=== PATIENT | female | born 1985 | race Two or more races ===

== ENCOUNTER 2024-06-04 10:00 | Emergency (ER) | payer MEDICAID, SELFPAY ==
[2024-06-04 10:38] VITALS: BP 169/89; PULSE 62; RESP 16; TEMP 36.6; O2SAT 98; BMI 39.1
--- NOTE | 2024-06-04 11:01 | XR_ITS ---
Examination: Pelvic ultrasound, transabdominal, complete Technique: Transabdominal ultrasound of the pelvis performed using grayscale imaging Date and time of exam: June 04, 2024 1121 hrs. Indications: Onset right-sided pelvic pain today Findings: Uterus 9.3 x 6.2 x 5.3 cm anteverted No uterine mass or intrauterine gestation Endometrial stripe 10 mm Right ovary 3.0 x 4.4 cm arterial flow Left ovary 2.9 x 3.0 cm arterial flow Impression: Negative examination
--- NOTE | 2024-06-04 11:04 | PD.EDRME ---
Rapid Medical Screening Exam RME Arrival date/time: 06/04/24 10:00 38-year-old female presents to the emergency department complaints of pelvic pain status post starting her menses. History of fibroids. Reports [id number] medication not being effective at home. Requesting pain medication. I have greeted and performed a focused initial assessment of this patient. Initial appropriate labs ordered at this time. A comprehensive ED assessment and evaluation of the patient and analysis of all test and completion of medical decision making process will be conducted by additional ED provider. Chief Complaint: Urogenital-Female Time Seen by Provider: 06/04/24 10:37 Vital signs: Vital Signs Temperature 97.9 F 06/04/24 10:38 Pulse Rate 62 06/04/24 10:38 Respiratory Rate 16 06/04/24 10:38 Blood Pressure 169/89 H 06/04/24 10:38 Pulse Oximetry (%) 98 06/04/24 10:38 Oxygen Delivery Method Room Air 06/04/24 10:38
--- NOTE | 2024-06-04 11:05 | PC.NURSE ---
MEDICATED PT PAIN AND WHEN TOLD TO RETURN TO THE LOBBY WHILE WAITING FOR A ROOM TO BE AVAILABLE (INFORMED THAT SHE IS IN ONE OF THE TRIAGE ROOMS AT PRESENT), PT STARTED YELLING SAYING I'M NOT GOING TO THE LOBBY. EVERYONE IS STARING AT ME WHILE I'M CRYING. AGAIN INFORMED PT SHE WAS IN A TRIAGE ROOM, NOT A PATIENT ROOM AND ROOM NEEDED FOR NEXT PT THAT NEEDS TO SEE PROVIDER, AND ALSO INFORMED THAT NURSE WILL TALK WITH CHARGE NURSE ABOUT HER CONCERNS, PTCONTINUES TO YELL I'M NOT WAITING IN THE LOBBY.
[2024-06-04] MEDS: HYDROcodone/APAP 5/325 TABLET 1 TAB PO (11:07)
--- NOTE | 2024-06-04 11:14 | PC.NURSE ---
ACOUSTICS TEACHER WENT TO GIVE PT WATER TO DRINK FOR CT AND PT STARTED YELLING AT THE ACOUSTICS TEACHER YOU CAN'T MAKE ME DRINKWATER OR GIVE A URINE, I'M HURTING AND WANT A ROOM. INFORMED PTTHAT URINE IS NEEDED TO MAKE SURE PAIN NOT FROM A URINE INFECTION, AND WATER NEEDED TO GET ULTRASOUND DONE. STILL REFUSING BUT DID GO TO LOBBY. ULTRASOUND CALLED THAT PT REFUSING TO DRINK WATER
[2024-06-04 13:34] LABS: Collection Type, Urine Clean Catch
[2024-06-04 13:50] LABS: Bacteria,Urine Rare; Bilirubin,Urine Negative (Negative); Blood,Urine 3+ (Negative); Color,Urine Yellow (Lt Yel-Yel); Glucose, Urine Negative (Negative); Ketones,Urine Negative (Negative); Leukocyte Esterase,Urine Positive (Negative); Nitrite,Urine Negative (Negative); Protein,Urine 1+ (Neg - Trace); RBC,Urine 546 /hpf (0-3); Squamous Epithelial Cell,Urine 2 /hpf (0-5); Urobilinogen,Urine Negative mg/dL (0.0-1.0); WBC,Urine 3 /hpf (0-5)
[2024-06-04 13:51] LABS: Clarity,Urine Hazy (Clear/Hazy)
[2024-06-04 14:54] LABS: HCG Qualitative,Urine Negative
[2024-06-04] MEDS: ONDANSETRON ODT 4 MG TABRAP 8 MG PO (14:55)
[2024-06-04] MEDS: MORPHINE SULF INJ 10 MG/ML VIAL 5 MG IM (14:55)
--- NOTE | 2024-06-07 11:45 | EDNOTE_ITS ---
ED Female Urogenital RME/HPI General Chief complaint: Urogenital-Female Stated complaint: b/l ovarian pain. more on right since last night Time Seen by Provider: 06/04/24 10:37 Arrival date/time: 06/04/24 10:00 This is a 38-year-old female who presents to the emergency department with complaints of lower pelvic pain that began after starting her menses. According to the patient she normally has pelvic pain which can be severe with her menses. Reports has been taking aufd-fde-xjaznhe Tylenol and ibuprofen with no relief prompting her ED visit today. Patient denies any fever, nausea no vomiting. No vaginal vaginal discharge foul odors. Limitations: no limitations RME / HPI RME / HPI Narrative: 06/04/24 10:00 38-year-old female presents to the emergency department complaints of pelvic pain status post starting her menses. History of fibroids. Reports [id number] medication not being effective at home. Requesting pain medication. I have greeted and performed a focused initial assessment of this patient. Initial appropriate labs ordered at this time. A comprehensive ED assessment and evaluation of the patient and analysis of all test and completion of medical decision making process will be conducted by additional ED provider. Related Data Previous Rx's ?Medication ?Instructions ?Recorded alprazolam 0.5 mg tablet (Xanax) 0.5 mg PO BID PRN anxiety #20 tabs 09/17/23 Allergies Allergy/AdvReac Type Severity Reaction Status Date / Time ibuprofen Allergy Intermediate RASH Verified 04/09/24 00:02 Review of Systems Review of Systems Systems Reviewed: All systems reviewed, normal except as documented Narrative Review of Systems: Gen: No fever, no chills, no weight loss EYES: No discharge, no visual changes, no pain HEENT: No ear pain, no congestion, no sore throat PULM: No shortness of breath, no cough, no congestion CV: No chest pain, no dyspnea on exertion, no palpitations GI: No nausea, no vomiting, no diarrhea, no pain, no constipation : No frequency, no urgency,? no dysuria, + pelvic pain Musc/skel: No joint pain, no back pain Skin: No rash? Psyc: No hallucinations, no depression Heme/Lymph: No easy bleeding or bruising tendencies Neuro: No weakness, no headache ED Exam General Limitations: Present no limitations General appearance: Present alert and in distress (Due to pain.) Expanded Head Exam Head exam physical: Present laceration (3 cm L eyebrow) Eye Eye exam: Present normal appearance, PERRL and EOMI ENT ENT exam: Present normal exam, normal oropharynx and mucous membranes moist Neck Neck exam: Present normal inspection, full ROM and trachea midline Chest Chest inspection: Present normal inspection and symmetric chest wall rise Respiratory Respiratory exam: Present normal lung sounds bilaterally Cardiovascular Cardiovascular exam: Present regular rate, normal rhythm and normal heart sounds Abdominal Exam Abdominal exam: Present soft, tenderness, normal bowel sounds and hyperactive bowel sounds; Absent distention, guarding, rebound, rigidity or mass Abdominal tenderness: Present suprapubic and mild Extremities Exam Extremities exam: Present normal inspection and full ROM Back Exam Back exam: Present normal inspection and full ROM Neurological Exam Neurological exam: Present alert, oriented X3 and CN II-XII intact Psychiatric Psychiatric exam: Present normal affect and normal mood Skin Skin exam: Present warm, dry, intact and normal color Course Quality Measures none Orders Category Date Time Status US pelvic complete Stat Exams 06/04/24 11:01 Completed HCG Qualitative,Urine Stat Lab 06/04/24 12:51 Completed UA [Urinalysis] Stat Lab 06/04/24 12:57 Completed HYDROcodone*/APAP 5/325 [[place] 5/325] Med 06/04/24 11:01 Discontinued 1 tab PO X1 ONE Morphine Inj Med 06/04/24 14:42 Discontinued 5 mg IM X1 ONE Ondansetron Odt [Zofran Odt] Med 06/04/24 14:42 Discontinued 8 mg PO X1 ONE Vital Signs Vital signs: Vital Signs Temperature 97.9 F 06/04/24 10:38 Pulse Rate 62 06/04/24 10:38 Respiratory Rate 16 06/04/24 10:38 Blood Pressure 169/89 H 06/04/24 10:38 Pulse Oximetry (%) 98 06/04/24 10:38 Oxygen Delivery Method Room Air 06/04/24 10:38 Urogenital - Female MDM Narrative MDM Narrative:: This is a 38-year-old female who presents to the emergency department with complaints of lower pelvic pain that began after starting her menses. According to the patient she normally has pelvic pain which can be severe with her menses. Labs and imaging reassuring. Pelvic ultrasound was completely normal. Patient was provided analgesia medications improving her pain. Patient does report have a follow-up appointment with her CLINICAL LABORATORY MEDICAL DIRECTOR this upcoming week in which she will keep her appointment for follow-up. No indications clinically for further workup or admission. Patient will be discharged home stable. Patient data External records reviewed:: [facility] previous records Clinical information provided by:: patient Social determinants that could affect healthcare access:: none Patient has the following chronic illnesses:: None How is presenting disease/condition affected by chronic disease/condition?: no chronic disease Evaluation data The following diagnostics were reviewed and interpreted by me:: lab results and radiology exam(s) Lab and/or radiology exams considered but not ordered:: no Interpretation Summary: Examination: Pelvic ultrasound, transabdominal, complete Technique: Transabdominal ultrasound of the pelvis performed using grayscale imaging Date and time of exam: June 04, 2024 1121 hrs. Indications: Onset right-sided pelvic pain today Findings: Uterus 9.3 x 6.2 x 5.3 cm anteverted No uterine mass or intrauterine gestation Endometrial stripe 10 mm Right ovary 3.0 x 4.4 cm arterial flow Left ovary 2.9 x 3.0 cm arterial flow Impression: Negative examination Medications / Prescriptions Medications or Prescriptions considered but not ordered:: no Medication administrations:: Medication Administration History Discontinued Medications Hydrocodone Bitart/Acetaminophen (Hydrocodone/Apap 5/325 Tablet) 1 tab PO X1 ONE Stop: 06/04/24 11:02 Last Admin: 06/04/24 11:07 Dose: 1 tab Documented By: [facility] Morphine Sulfate (Morphine Sulf Inj 10 Mg/Ml Vial) 5 mg IM X1 ONE Stop: 06/04/24 14:43 Last Admin: 06/04/24 14:55 Dose: 5 mg Documented By: Ondansetron HCl (Ondansetron Odt 4 Mg Tabrap) 8 mg PO X1 ONE; Protocol Stop: 06/04/24 14:43 Last Admin: 06/04/24 14:55 Dose: 8 mg Documented By: All medications administered and effective Consultations Consultation(s) initiated? (list below): No Diagnosis Urogenital Female Differential Diagnosis: urinary tract infection, vaginitis, ruptured ovarian cyst, cystitis and dysmenorrhea Most likely diagnosis given after review of the tests above:: Dysmenorrhea Admission Indicated Admission indicated?: not indicated Admission Request Was there a request for admission?: No Disposition Plan Disposition Plan: Discharge Discharge Attestation Discharge Attestation: The patient and all family members were given an opportunity to ask questions and understood the discharge instructions. Discharge instructions specifically effects, indications for sooner follow up or return to the emergency department, and the expected course of current diagnosis. Patient condition: Stable Discharge Plan Plan Patient Disposition: HOME (Self Care) Patient condition on transfer: Stable Prescriptions/Referrals Prescriptions/Med Rec: No Action alprazolam [Xanax] 0.5 mg tablet 0.5 mg PO BID PRN (Reason: anxiety) Qty: 20 0RF Referrals: Lyndon Choi MD [Primary Care Provider] - In 1 week Problem List Clinical Impression: Dysmenorrhea Patient/Caregiver Discharge Instructions Discharge Activity: activity as tolerated Education Materials: ED MENSTRUAL CRAMPING Additional Instructions: Please follow-up with your PROCESS VALIDATION ENGINEER this week. Take pain medication as directed. Return to the emergency department is any worsening symptoms change in condition. Print Language: Cymro Stand Alone Forms: Zena Award Info., Patient Portal Info Letter Attestation Attestation The patient was seen by the midlevel practitioner. I, the co-signing physician, was present during the entire ER visit. While I did not physically examine the patient, I was available for consultation as needed.
== END 2024-06-04 15:36 | disposition home or self-care (01) ==
PROVIDERS: Nurse Practitioner Primary Care; Emergency Provider Emergency Medicine; PCP Family Medicine
DX: N94.6 Dysmenorrhea, unspecified (principal)
CPT/HCPCS: 76856; 81001; 81025; 96372; 99284; J2270; Q0162; A9270

== ENCOUNTER 2024-07-06 11:50 | Emergency (ER) | payer MEDICAID, SELFPAY ==
[2024-07-06 11:54] VITALS: BP 99/79; PULSE 65; RESP 17; TEMP 36.8; O2SAT 99; BMI 38.9
--- NOTE | 2024-07-06 12:27 | XR_ITS ---
Examination: Transvaginal ultrasound of the pelvis, complete Technique: Transvaginal sonographic images pelvis performed using delarosa scale imaging Exam date and time: July 06, 2000 2413-hours INDICATIONS: Severe pelvic pain beginning 2 days ago FINDINGS: Uterus 7.7 x 5.9 x 5.6 cm Multiple small uterine masses, the largest 13 mm No free fluid in the endometrial canal. The ovaries obscured by bowel gas IMPRESSION: Multiple small areas of uterine fibroid degeneration.
--- NOTE | 2024-07-06 12:27 | XR_ITS ---
Examination: Pelvic ultrasound, transabdominal, complete Technique: Transabdominal ultrasound of the pelvis performed using grayscale imaging Date and time of exam: July 06, 2024 1301 hours INDICATIONS: Severe pelvic pain beginning 2 days ago FINDINGS: Uterus 6.7 x 4.5 x 5.6 cm Endometrial stripe 0.7 cm Right ovary 3.4 x 2.2 x 3.1 cm arterial flow 13 mm follicular cyst Left ovary 2.7 x 2.1 x 2.2 cm arterial flow IMPRESSION: No uterine mass or intrauterine gestation
[2024-07-06] MEDS: MORPHINE SULF INJ 10 MG/ML VIAL 5 MG IM (13:50)
[2024-07-06] MEDS: ONDANSETRON INJ 2 MG/ML INJ 2 ML 4 MG IM (13:52)
[2024-07-06 15:56] VITALS: BP 162/94; PULSE 103; RESP 17; TEMP 36.8; O2SAT 100
--- NOTE | 2024-07-06 16:04 | PD.EDFMALE ---
ED Female Urogenital RME/HPI General Chief complaint: Urogenital-Female Stated complaint: pelvic pain x 2 days Time Seen by Provider: 07/06/24 12:14 Source: patient Arrival date/time: 07/06/24 11:50 This is a 38-year-old female who presents to the emergency department with complaints of lower pelvic pain worsened over for 2 days. Was sent to by her pcp for repeat U/S pelvic due to hx of ovarian cyst and uterine fibroids. Patient reports she was unable to get these test done sooner, so her PCP sent her here for repeat and for pain control. According to the patient she has these recurrent pelvic pain since 2020. According to the patient she normally has pelvic pain which can be severe with her menses. Reports has been taking stmh-brr-vytropl Tylenol and ibuprofen with no relief prompting her ED visit today. She has been referred to [facility] has an appointment in [place]. Patient requesting narcotic pain control today. Patient denies any fever, nausea no vomiting no diarrhea, melena not on her menses today.. No vaginal vaginal discharge foul odors. Mode of arrival: ambulatory Related Data Previous Rx's ?Medication ?Instructions ?Recorded alprazolam 0.5 mg tablet (Xanax) 0.5 mg PO BID PRN anxiety #20 tabs 09/17/23 hydrocodone 5 mg-acetaminophen 325 1 tab PO Q8H PRN pain #7 tabs 07/06/24 mg tablet Allergies Allergy/AdvReac Type Severity Reaction Status Date / Time ibuprofen Allergy Intermediate RASH Verified 07/06/24 11:53 Review of Systems Review of Systems Systems Reviewed: All systems reviewed, normal except as documented Narrative Review of Systems: Gen: No fever, no chills, no weight loss EYES: No discharge, no visual changes, no pain HEENT: No ear pain, no congestion, no sore throat PULM: No shortness of breath, no cough, no congestion CV: No chest pain, no dyspnea on exertion, no palpitations GI: No nausea, no vomiting, no diarrhea, no pain, no constipation : No frequency, no urgency,? no dysuria, +chronic pelvic pain. Musc/skel: No joint pain, no back pain Skin: No rash? ED Exam Narrative Physical exam: General: 38-year-old female appears mildly anxious crying during exam HENT: normocephalic, atraumatic, EOMI, PERRLA, moist mucous membranes Chest: chest wall is nontender Cardiac: regular rate and rhythm, normal S1 and S2, no murmurs, rubs, or gallops, capillary refill ?2 seconds Pulmonary: clear to auscultation bilaterally, no wheezing, crackles, or rhonchi Abdominal: active bowel sounds, soft, nontender, nondistended, + mild suprapubic pain tenderness no rebound tenderness. Neuro: A&OX3, CN II-XII intact, sensation grossly intact bilaterally in UE and LE. Skin: no rashes, no ecchymosis Ext: no lower extremity edema Course Quality Measures none Orders Category Date Time Status US pelvic complete Stat Exams 07/06/24 12: Completed US transvaginal Stat Exams 07/06/24 12:27 Completed HYDROcodone*/APAP 5/325 [[place] 5/325] Med 07/06/24 16:21 Discontinued 1 tab PO X1 ONE Morphine Inj Med 07/06/24 12:29 Discontinued 5 mg IM X1 ONE Ondansetron Inj [Zofran Inj] Med 07/06/24 12:29 Discontinued 4 mg IM X1 ONE Vital Signs Vital signs: Vital Signs Temperature 98.3 F 07/06/24 11:54 Pulse Rate 65 07/06/24 11:54 Respiratory Rate 17 07/06/24 11:54 Blood Pressure 99/79 07/06/24 11:54 Pulse Oximetry (%) 99 07/06/24 11:54 Oxygen Delivery Method Room Air 07/06/24 11:54 Urogenital - Female MDM Narrative MDM Narrative:: This is a 38-year-old female who presents to the emergency department with complaints of lower pelvic pain worsened over for 2 days. Was sent to by her pcp for repeat U/S pelvic due to hx of ovarian cyst and uterine fibroids. Patient reports she was unable to get these test done sooner, so her PCP sent her here for repeat and for pain control. Upon arrival patient requesting IM morphine. Which was given to her for pain control. Ultrasound pelvic and transvaginal ordered. Imaging results were reassuring. Imaging results of uterine fibroid and a small follicular cyst. I went over the results with the patient patient became mildly belligerent requesting more pain medication. I did offer her a p.o. [place] which she still was hesitant. Advised the patient most likely her pain is a chronic pain. I strongly advised patient to keep her appointment with her WAITSTAFF CAPTAIN in [place], to rule out endometriosis. Patient requesting narcotic prescription for home I did advise patient I will give her a 7-tabs until she is able to see her PCP for pain control or be sent to a pain clinic. Patient vital signs stable no acute alteration in condition. I have explained at length that I would be ready to address the complaint appropriately. I have stressed the importance to safe care and did not disregard or dismiss the complaints, but explained that I was quite concerned about the narcotics dependent, misuse and/or potential abuse. I explained that I provided a stabilizing exam and will pursue the least invasive course. Prior to discharge patient on the phone calling to make an appointment with her PCP for narcotic prescription. Appears to be malingering behavior. Patient will be discharged home close follow-up with PCP. Patient data External records reviewed:: [facility] previous records Clinical information provided by:: patient Social determinants that could affect healthcare access:: none Patient has the following chronic illnesses:: Chronic pelvic pain How is presenting disease/condition affected by chronic disease/condition?: exacerbated by Evaluation data The following diagnostics were reviewed and interpreted by me:: radiology exam(s) Lab and/or radiology exams considered but not ordered:: yes considered Interpretation Summary: Examination: Pelvic ultrasound, transabdominal, complete Technique: Transabdominal ultrasound of the pelvis performed using grayscale imaging Date and time of exam: July 06, 2024 1301 hours INDICATIONS: Severe pelvic pain beginning 2 days ago FINDINGS: Uterus 6.7 x 4.5 x 5.6 cm Endometrial stripe 0.7 cm Right ovary 3.4 x 2.2 x 3.1 cm arterial flow 13 mm follicular cyst Left ovary 2.7 x 2.1 x 2.2 cm arterial flow IMPRESSION: No uterine mass or intrauterine gestation Examination: Transvaginal ultrasound of the pelvis, complete Technique: Transvaginal sonographic images pelvis performed using delarosa scale imaging Exam date and time: July 06, 2000 2413-hours INDICATIONS: Severe pelvic pain beginning 2 days ago FINDINGS: Uterus 7.7 x 5.9 x 5.6 cm Multiple small uterine masses, the largest 13 mm No free fluid in the endometrial canal. The ovaries obscured by bowel gas IMPRESSION: Multiple small areas of uterine fibroid degeneration. Medications / Prescriptions Medications or Prescriptions considered but not ordered:: yes, short course of narcotic prescription Medication administrations:: Medication Administration History Discontinued Medications Hydrocodone Bitart/Acetaminophen (Hydrocodone/Apap 5/325 Tablet) 1 tab PO X1 ONE Stop: 07/06/24 16:22 Last Admin: 07/06/24 16:24 Dose: 1 tab Documented By: OA Morphine Sulfate (Morphine Sulf Inj 10 Mg/Ml Vial) 5 mg IM X1 ONE Stop: 07/06/24 12:30 Last Admin: 07/06/24 13:50 Dose: 5 mg Documented By: OA Ondansetron HCl (Ondansetron Inj 2 Mg/Ml Inj 2 Ml) 4 mg IM X1 ONE; Protocol Stop: 07/06/24 12:30 Last Admin: 07/06/24 13:52 Dose: 4 mg Documented By: OA All medications administered and effective Consultations Consultation(s) initiated? (list below): No Diagnosis Urogenital Female Differential Diagnosis: ovarian cyst, ruptured ovarian cyst, cyst of Bartholin's gland, cystitis and dysmenorrhea Most likely diagnosis given after review of the tests above:: During fibroid and ovarian cyst chronic pelvic pain Admission Indicated Admission indicated?: not indicated Admission Request Was there a request for admission?: No Disposition Plan Disposition Plan: Discharge Discharge Attestation Discharge Attestation: The patient and all family members were given an opportunity to ask questions and understood the discharge instructions. Discharge instructions specifically effects, indications for sooner follow up or return to the emergency department, and the expected course of current diagnosis. Patient condition: Stable Discharge Plan Plan Patient Disposition: HOME (Self Care) Patient condition on transfer: Stable Prescriptions/Referrals Prescriptions/Med Rec: New hydrocodone-acetaminophen 5-325 mg tablet 1 tab PO Q8H MDD 3 PRN (Reason: pain) Qty: 7 0RF No Action alprazolam [Xanax] 0.5 mg tablet 0.5 mg PO BID PRN (Reason: anxiety) Qty: 20 0RF Referrals: No Primary/Family,Physician [Primary Care Provider] - In 1 week Problem List Clinical Impression: Ovarian cyst, Fibroid uterus, Dysmenorrhea Patient/Caregiver Discharge Instructions Discharge Activity: activity as tolerated Education Materials: ED Ovarian Cyst, ED Uterine Fibroids Additional Instructions: Please keep your appointment with WAITSTAFF CAPTAIN. You did just receive narcotic today for your pain. You will need to follow-up with your primary doctor for pain control or be sent to a chronic pain clinic. Increase fluid intake, can take [id number] Tylenol ibuProfen for your pain. reTurn to the emergency department this any worsening symptoms or change in condition. Print Language: Haitian Stand Alone Forms: Zena Award Info., Patient Portal Info Letter PA/TAYLOR Supervising Physician PA/TAYLOR Supervising Physician: Dr. Block
[2024-07-06 16:11] VITALS: BP 144/81; PULSE 62; RESP 18; TEMP 36.6; O2SAT 97
[2024-07-06] MEDS: HYDROcodone/APAP 5/325 TABLET 1 TAB PO (16:24)
== END 2024-07-06 16:53 | disposition home or self-care (01) ==
PROVIDERS: Emergency Provider Emergency Medicine
DX: D25.9 Leiomyoma of uterus, unspecified (principal); N83.02 Follicular cyst of left ovary
CPT/HCPCS: 76830; 76856; 96372; 99284; J2270; J2405; A9270

== ENCOUNTER → 2024-11-13 | Outpatient (CLI) | payer MEDICAID, SELFPAY ==
--- NOTE | 2024-11-13 | XR_ITS ---
Examination: CT abdomen with intravenous contrast CT pelvis with intravenous contrast 2-D coronal reconstructions 2-D sagittal reconstructions Date and time of exam:November 13, 2024 1336 hours Comparison January 30, 2015 INDICATIONS: Onset right lower abdominal pain beginning 5 years ago. CTDI: vol (mGy) 11.4 DLP: (mGycm) 639 Technique: Multiple axial sections of the abdomen and pelvis have been obtained. 64 slice high-resolution scanner used. 3 mm axial sections have been obtained, post intravenous injection 60 cc [id number] 2-D sagittal, coronal reconstructions obtained. Low dose protocols were performed. One or more of the following dose reduction techniques were used; automated exposure control, adjustment of the mA and/or KV according to patient size, use of iterative reconstruction technique. Findings: No focal liver or splenic lesion No gallstones No pancreatic or adrenal mass No renal or ureteral calculi Normal appendix 4 cm uterine fundal mass Bladder intact No diverticulitis IMPRESSION: 4 cm uterine fundal mass, recommend repeat transvaginal pelvic sonography follow-up
[2024-11-13 11:53] LABS: HCG Qualitative,Urine Negative
== END | disposition home or self-care (01) ==
PROVIDERS: Referring Provider Obstetrics & Gynecology; Visit Provider Obstetrics & Gynecology
DX: N85.8 Other specified noninflammatory disorders of uterus (principal); Z32.00 Encounter for pregnancy test, result unknown
CPT/HCPCS: 74177; 81025; A4649; Q9967

== ENCOUNTER 2025-05-08 08:38 | Emergency (ER) | payer MEDICAID, SELFPAY ==
[2025-05-08 08:39] VITALS: BMI 33.8
[2025-05-08 08:46] VITALS: BP 170/84; PULSE 59; RESP 16; TEMP 36.7; O2SAT 98
--- NOTE | 2025-05-08 08:55 | XR_ITS ---
Examination: Transvaginal ultrasound of the pelvis, complete Technique: Transvaginal sonographic images pelvis performed using delarosa scale imaging Exam date and time: May 08, 2025, 1008 hours INDICATIONS: 4 cm uterine fundal mass on CT pelvis November 13, 2024. FINDINGS: Uterus 8.8 cm, uterine fundal vascular mass 4.9 x 3.6 x 4.1 cm Endometrial stripe 0.4 cm Right ovary 3.3 cm arterial flow Left ovary 3.2 cm arterial flow, 21 mm cyst IMPRESSION: Uterine fundal vascular mass 4.9 x 3.6 x 4.1 cm, recommend MRI pelvis follow-up pre and postcontrast to exclude malignant neoplasm of the uterus.
--- NOTE | 2025-05-08 08:55 | EKG_ITS ---
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
--- NOTE | 2025-05-08 08:56 | PD.EDRME ---
Rapid Medical Screening Exam [facility] Arrival date/time: 05/08/25 08:38 39-year-old female with no known medical history presents to the emergency room with a chief complaint of pelvic pain and vaginal bleeding x 4 days. Patient states she also had a syncopal episode that occurred today at home. I have greeted and performed a focused initial assessment of this patient. A comprehensive ED assessment and evaluation of the patient, analysis of all test results, and completion of the medical decision making process will be conducted by additional ED providers. Chief Complaint: Syncope / Near Syncope Vital signs: Vital Signs Temperature 98.1 F 05/08/25 08:46 Pulse Rate 59 L 05/08/25 08:46 Respiratory Rate 16 05/08/25 08:46 Blood Pressure 170/84 H 05/08/25 08:46 Pulse Oximetry (%) 98 05/08/25 08:46 Oxygen Delivery Method Room Air 05/08/25 08:46 Vital signs reviewed by provider: Yes
[2025-05-08] MEDS: ONDANSETRON ODT 4 MG TABRAP PO (09:01)
[2025-05-08] MEDS: HYDROcodone/APAP 5/325 TABLET 1 TAB PO ×2 (09:01→12:58)
--- NOTE | 2025-05-08 09:03 | XR_ITS ---
Examination: CT abdomen and pelvis without contrast. Coronal 3-D reconstructions. Sagittal 2-D reconstructions. Date and time of exam: May 08, 2025, 10:44 a.m., comparison November 13, 2024 INDICATIONS: Right side abdominal pain today CTDI: vol (mGy): 9.03 DLP: (mGycm): 558 Technique: Axial images of the abdomen have been obtained, 3 mm slice thickness Intravenous contrast material has not been administered. Low dose protocols were performed. One or more of the following dose reduction techniques were used; automated exposure control, adjustment of the mA and/or KV according to patient size, use of iterative reconstruction technique. Findings: No focal liver or splenic lesions No gallstones. No pancreatic or adrenal mass. No renal or ureteral calculi, no hydronephrosis Aorta normal size No pericecal inflammatory change No bowel obstruction Scattered colonic diverticulosis 4 cm uterine fundal mass Bladder intact Osseous structures intact IMPRESSION: 4 cm uterine fundal mass No acute process in the abdomen or pelvis
[2025-05-08 09:32] LABS: Basophils # (Auto) 0.1 Thou/mm3 (0.0-0.2); Basophils % (Auto) 1 % (0-2.5); Eosinophils # (Auto) 0.1 Thou/mm3 (0.0-0.5); Eosinophils % (Auto) 1 % (0-10); Hematocrit 39.8 % (36.0-46.0); Hemoglobin 13.0 g/dL (12.0-16.0); Immature Granulocytes Auto 0.04 Thou/mm3 (0.00-0.00); Lymphocytes # (Auto) 2.1 Thou/mm3 (1.0-4.8); Lymphocytes % (Auto) 18 % (10-50); Mean Corpuscular HGB Conc 32.7 g/dl (31.0-37.0); Mean Corpuscular Hemoglobin 28.6 pg (25.0-35.0); Mean Corpuscular Volume 88 fL (80-100); Monocytes # (Auto) 0.5 Thou/mm3 (0.0-0.8); Monocytes % (Auto) 4 % (0-12); Neutrophils # (Auto) 8.6 Thou/mm3 (1.8-7.7); Neutrophils % (Auto) 76 % (37-80); Nucleated Red Blood Cell # 0.00 Thou/mm3 (0.00-0.00); Nucleated Red Blood Cell % 0 /100 WBC (0); Platelet Count 455 Thou/mm3 (140-440); RDW Standard Deviation 44.7 fL (36.4-46.3); Red Blood Count 4.55 Miln/mm3 (4.00-5.20); White Blood Count 11.3 Thou/mm3 (3.6-11.0)
[2025-05-08 09:39] LABS: INR 1.0 (0.9-1.3); Partial Thromboplastin Time 29.3 Seconds (22.0-36.0); Prothrombin Time 10.4 Seconds (9.0-12.2)
[2025-05-08 09:44] LABS: Collection Type, Urine Clean Catch
[2025-05-08 09:49] LABS: Bacteria,Urine Rare; Bilirubin,Urine Negative (Negative); Blood,Urine 3+ (Negative); Glucose, Urine Negative (Negative); Ketones,Urine Negative (Negative); Leukocyte Esterase,Urine Negative (Negative); Nitrite,Urine Negative (Negative); PH,Urine 5.5 (5.0-7.0); Protein,Urine 1+ (Neg - Trace); RBC,Urine 5 /hpf (0-3); Specific Gravity,Urine 1.024 (1.001-1.035); Squamous Epithelial Cell,Urine 6 /hpf (0-5); Urobilinogen,Urine Negative mg/dL (0.0-1.0); WBC,Urine 2 /hpf (0-5)
[2025-05-08 09:50] LABS: B-Type Natriuretic Peptide 66 pg/mL (0-100)
[2025-05-08 09:52] LABS: HCG Qualitative,Urine Negative
[2025-05-08 09:53] LABS: Clarity,Urine Cloudy (Clear/Hazy); Color,Urine Red (Lt Yel-Yel)
[2025-05-08 10:01] LABS: Alanine Aminotransferase 8 U/L (10-49); Albumin, Serum 4.7 gm/dL (3.5-5.0); Albumin/Globulin Ratio 1.7 (1.2-2.2); Alkaline Phosphatase 46 U/L (46-116); Anion Gap 8 (7-16); Aspartate Amino Transferase 13 U/L (0-34); BUN/Creatinine Ratio 11 Ratio (12-20); Bilirubin,Total 0.6 mg/dL (0.3-1.2); Blood Urea Nitrogen 8 mg/dL (9-23); Calcium 8.8 mg/dL (8.3-10.6); Calcium (Corrected) 8.8 mg/dL (8.5-10.1); Carbon Dioxide 25.7 mMol/L (20.0-31.0); Chloride 107 mMol/L (98-107); Creatinine (Component) 0.7 mg/dL (0.6-1.3); Estimated Creatinine Clearance 102.1 mL/min (>60); Globulin 2.7 gm/dL (2.3-3.5); Glucose 106 mg/dL (74-106); Lipase 27 U/L (12-53); Osmolality,Calculated 279 (275-295); Potassium 4.4 mMol/L (3.4-5.1); Sodium 141 mMol/L (136-145); Total Protein 7.4 gm/dL (5.7-8.2); Troponin I < 0.002 ng/mL (0.0-0.045); eGFR > 60 See Note
--- NOTE | 2025-05-08 12:44 | PC.NURSE ---
Dr. De La Torre aware patient requesting more pain medication, states no relief from norco earlier.
--- NOTE | 2025-05-08 13:30 | EDNOTE_ITS ---
ED Abdominal Pain RME/HPI General Chief Complaint: Syncope / Near Syncope Stated complaint: STARTED MY PERIOD, DOES NOT FEEL NORMAL Arrival date/time: 05/08/25 08:38 RME / HPI RME / HPI narrative: 05/08/25 08:38 39-year-old female with no known medical history presents to the emergency room with a chief complaint of pelvic pain and vaginal bleeding x 4 days. Patient states she also had a syncopal episode that occurred today at home. I have greeted and performed a focused initial assessment of this patient. A comprehensive ED assessment and evaluation of the patient, analysis of all test results, and completion of the medical decision making process will be conducted by additional ED providers. DR. HAMMOND MAIN ED EVALUATION 39 year old female with history of ovarian cysts and painful menses presents to the ED for evaluation of severe pelvic abdominal cramping pain today. Patient states she has had painful menses and usually able to manage pain at home. However, since starting her menses 2 days ago, she has been unable to manage pain with Tylenol. States this morning while using the restroom the pain was so severe she possibly momentarily lost consciousness while in the restroom. Denies head injury. No other associated symptoms reported. Patient mentioned a referral has been sent to see OBGYN Dr. Barnes. Related Data Previous Rx's ?Medication ?Instructions ?Recorded alprazolam 0.5 mg tablet (Xanax) 0.5 mg PO BID PRN anx iety #20 tabs 09/17/23 hydrocodone 5 mg-acetaminophen 325 1 tab PO Q8H PRN pa in #7 tabs 07/06/ mg tablet Allergies Allergy/AdvReac Type Severity Reaction Status Date / Time ibuprofen Allergy Intermediate RASH Verified 05/08/25 08:43 Review of Systems Review of Systems Systems Reviewed: All systems reviewed, normal except as documented Past Medical History Past Medical History CARDIAC: Negative Congestive Heart Failure RESPIRATORY: Negative Chronic Obstructive Pulmonary Disease (COPD) GENITOURINARY: Negative Renal Disease ENDOCRINE: Negative Diabetes Mellitus Type 1 or Diabetes Mellitus Type 2 Social History SMOKING STATUS: Never smoker ED Exam Narrative Physical exam: GENERAL APPEARANCE:? alert and oriented x 4, well-developed, well-nourished, no acute distress HEENT: normocephalic, atraumatic NECK: supple LUNGS: no respiratory distress, normal effort HEART: good peripheral perfusion ABDOMEN: non distended, mild right pelvic tenderness EXTREMITIES:? atraumatic NEUROLOGIC: awake; alert and oriented x4; cranial nerves II-XII grossly intact PSYCHIATRIC:? appropriate mood and affect SKIN: warm, dry, normal color; no rashes Course Course Course Narrative: Patient remains clinically stable throughout the emergency department visit. States her pain improved after second dose of pain medications. We reviewed all the results, analysis, and treatment plans. Patient is amenable to discharge. Strict return precautions were outlined. Quality Measures none Orders Category Date Time Status EKG (ED ONLY) *Do not use* NOW Care 05/08/25 08:[address] abdomen pelvis wo con Stat Exams 05/08/25 09:03 Completed EKG (ED Only) Stat Exams 05/08/25 08:55 Draft US transvaginal Stat Exams 05/08/25 08:55 Completed BNP [B-Type Natriuretic Peptide] Stat Lab 05/08/25 09:05 Completed CBC Stat Lab 05/08/25 09:05 Completed CMP [Comprehensive Metabolic Panel] Stat Lab 05/08/25 09:05 Completed HCG Qualitative,Urine Stat Lab 05/08/25 09:36 Completed Lipase Stat Lab 05/08/25 09:05 Completed PT [Prothrombin Time with INR] Stat Lab 05/08/25 09:05 Completed PTT [Partial Thromboplastin Time] Stat Lab 05/08/25 09:05 Completed Troponin I Stat Lab 05/08/25 09:05 Completed UA [Urinalysis] Stat Lab 05/08/25 09:36 Completed Urine Culture Stat Lab 05/08/25 09:36 Received HYDROcodone*/APAP 5/325 [Elizabeth 5/325] Med 05/08/25 08:55 Discontinued 1 tab PO X1 ONE HYDROcodone*/APAP 5/325 [Elizabeth 5/325] Med 05/08/25 12:43 Discontinued 1 tab PO X1 ONE Ondansetron Odt [Zofran Odt] Med 05/08/25 08:55 Discontinued 4 mg PO X1 ONE Vital Signs Vital signs: Vital Signs Temperature 98.1 F 05/08/25 08:46 Pulse Rate 59 L 05/08/25 08:46 Respiratory Rate 16 05/08/25 08:46 Blood Pressure 170/84 H 05/08/25 08:46 Pulse Oximetry (%) 98 05/08/25 08:46 Oxygen Delivery Method Room Air 05/08/25 08:46 Pulse ox is 98% on room air which is adequate. Abdominal Pain MDM MDM Narrative MDM Narrative:: INichole, oseas scribing for and in the presence of Dr. Hammond. Patient data External records reviewed:: [facility] previous records Clinical information provided by:: patient Social determinants that could affect healthcare access:: none Patient has the following chronic illnesses:: hx of painful menses How is presenting disease/condition affected by chronic disease/condition?: exacerbated by Evaluation data The following diagnostics were reviewed and interpreted by me:: lab results, radiology exam(s) and EKG tracing(s) (EKG @ 09:02am. NSR with occasional PVCs, rate 65, no STEMI. ) Lab and/or radiology exams considered but not ordered:: None Interpretation Summary: Ordering Physician: Gustavo Masters Date of Service: 05/08/25 Procedure(s): US transvaginal Accession Number(s): [id number] cc: Elizabeth Goff PA-C; Gustavo Masters; Willie Morales MD~ Examination: Transvaginal ultrasound of the pelvis, complete Technique: Transvaginal sonographic images pelvis performed using delarosa scale imaging Exam date and time: May 08, 2025, 1008 hours INDICATIONS: 4 cm uterine fundal mass on CT pelvis November 13, 2024. FINDINGS: Uterus 8.8 cm, uterine fundal vascular mass 4.9 x 3.6 x 4.1 cm Endometrial stripe 0.4 cm Right ovary 3.3 cm arterial flow Left ovary 3.2 cm arterial flow, 21 mm cyst IMPRESSION: Uterine fundal vascular mass 4.9 x 3.6 x 4.1 cm, recommend MRI pelvis follow-up pre and postcontrast to exclude malignant neoplasm of the uterus. Dictated By: Willie Morales MD Signed By: <Electronically signed by Willie Morales MD in OV> 05/08/25 1122 == Ordering Physician: Gustavo Masters Date of Service: 05/08/25 Procedure(s): CT abdomen pelvis wo con Accession Number(s): [id number] cc: Elizabeth Goff PA-C; Gustavo Masters; Willie Morales MD~ Examination: CT abdomen and pelvis without contrast. Coronal 3-D reconstructions. Sagittal 2-D reconstructions. Date and time of exam: May 08, 2025, 10:44 a.m., comparison November 13, 2024 INDICATIONS: Right side abdominal pain today CTDI: vol (mGy): 9.03 DLP: (mGycm): 558 Technique: Axial images of the abdomen have been obtained, 3 mm slice thickness Intravenous contrast material has not been administered. Low dose protocols were performed. One or more of the following dose reduction techniques were used; automated exposure control, adjustment of the mA and/or KV according to patient size, use of iterative reconstruction technique. Findings: No focal liver or splenic lesions No gallstones. No pancreatic or adrenal mass. No renal or ureteral calculi, no hydronephrosis Aorta normal size No pericecal inflammatory change No bowel obstruction Scattered colonic diverticulosis 4 cm uterine fundal mass Bladder intact Osseous structures intact IMPRESSION: 4 cm uterine fundal mass No acute process in the abdomen or pelvis Dictated By: Willie Morales MD Signed By: <Electronically signed by Willie Morales MD in OV> 05/08/25 1137 Medications / Prescriptions Medications or Prescriptions considered but not ordered:: none Medication administrations:: Medication Administration History Discontinued Medications Hydrocodone Bitart/Acetaminophen (Hydrocodone/Apap 5/325 Tablet) 1 tab PO X1 ONE Stop: 05/08/25 08:56 Last Admin: 05/08/25 09:01 Dose: 1 tab Documented By: GM Hydrocodone Bitart/Acetaminophen (Hydrocodone/Apap 5/325 Tablet) 1 tab PO X1 ONE Stop: 05/08/25 12:44 Last Admin: 05/08/25 12:58 Dose: 1 tab Documented By: AA Ondansetron HCl (Ondansetron Odt 4 Mg Tabrap) 4 mg PO X1 ONE; Protocol Stop: 05/08/25 08:56 Last Admin: 05/08/25 09:01 Dose: 4 mg Documented By: BRIAN see above Consultations Consultation(s) initiated? (list below): No Diagnosis Differential diagnosis abdominal pain: abdominal pain, endometriosis and other (ovarian cyst, syncope ) Most likely diagnosis given after review of the tests above:: right sided pelvic pain mass of uterus Admission Indicated Admission indicated?: not indicated Admission Request Was there a request for admission?: No Disposition Plan Disposition Plan: Discharge Discharge Attestation Discharge Attestation: The patient and all family members were given an opportunity to ask questions and understood the discharge instructions. Discharge instructions specifically effects, indications for sooner follow up or return to the emergency department, and the expected course of current diagnosis. Patient condition: Stable Discharge Plan Plan Patient Disposition: HOME (Self Care) Prescriptions/Referrals Prescriptions/Med Rec: No Action alprazolam [Xanax] 0.5 mg tablet 0.5 mg PO BID PRN (Reason: anxiety) Qty: 20 0RF hydrocodone-acetaminophen 5-325 mg tablet 1 tab PO Q8H MDD 3 PRN (Reason: pain) Qty: 7 0RF Referrals: Elizabeth Goff PA-C [Primary Care Provider] - In 1 week Ferny Barnes MD [Physician, CLAIMS SUPPORT SPECIALIST] Problem List Clinical Impression: Right-sided pelvic pain, Mass of uterus determined by ultrasound Patient/Caregiver Discharge Instructions Education Materials: ED Pelvic Pain, Unknown Cause Additional Instructions: Follow up with your referral to Dr. Barnes, gynecology. Print Language: Romansh Stand Alone Forms: [facility] Award Info., Patient Portal Info Letter
[2025-05-08 13:51] VITALS: BP 138/72; PULSE 78; RESP 14; O2SAT 98
== END 2025-05-08 13:56 | disposition home or self-care (01) ==
PROVIDERS: Nurse Practitioner Family; Emergency Provider Emergency Medicine; PCP Physician Assistant Medical
DX: N93.9 Abnormal uterine and vaginal bleeding, unspecified (principal)
CPT/HCPCS: 36415; 74176; 76830; 80053; 81001; 81025; 83690; 83880; 84484; 85025; 85610; 85730; 87086; 93005; 99282; Q0162; A9270

== ENCOUNTER 2025-06-08 08:48 | Outpatient (AMB) | payer MEDICAID, SELFPAY ==
--- NOTE | 2025-06-08 08:58 | AMB.GYNCLNOT ---
Vital Signs 06/08/25 09:03 Height 1.55 m Height Method Stated Weight 81.817 kg Weight Measurement Method Standing Scale BMI 34.0 BP 127/87 H Blood Pressure Source Automatic Cuff Blood Pressure Location Left Upper Arm Position Sitting Respiration 14 Pulse 67 Pulse Source Monitor Temp 97.9 F Temp Source Oral Pulse Oximetry (%) 97 Oxygen Delivery Method Room Air Allergies/Home Meds Allergies & Medications Allergies ibuprofen Allergy (Intermediate, Verified 06/08/25 09:04) RASH Medication Reconciliation alprazolam 0.5 mg tablet (Xanax) 0.5 mg PO BID PRN anxiety #20 tabs 09/17/23 [Rx Confirmed 06/08/25] hydrocodone 5 mg-acetaminophen 325 mg tablet 1 tab PO Q8H PRN pain #7 tabs 07/06/24 [Rx Confirmed 06/08/25] Intake Visit Data Collection New Patient or Established: Established Patient (seen at [facility] within 3 years) Reason for Visit:: REFERRAL PELVIC PAIN Seen by Clinical Staff ONLY (RN/MA): No Floorworker Required: No Do You Feel Safe at Home: Yes Authorities Contacted: N/A PCP or OBGYN visit in last 3 months: Yes Hx Now: No Are you currently on any form of Control: No Last menstrual period: 06/01/25 Pain Present Currently: No Pain Scale Used: Pinzon-Goff/Numerical Pain scale:: 0 Smoking Status Smoking Status: Never smoker Immunizations Flu Vaccine in the Last 12 Months: No Flu Vaccine Exclusion Criteria: Refused by Patient 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 1. Little interest or pleasure in doing things: not at all 2. Feeling down, depressed, or hopeless: not at all Total score: 0 PHQ-9 3. Trouble falling or staying asleep, or sleeping too much: Not at all 4. Feeling tired or having little energy: Not at all 5. Poor appetite or overeating: Not at all 6. Feeling bad about yourself - or that you are a failure or have let yourself or your family down: Not at all 7. Trouble concentrating on things, such as reading the newspaper or watching television: Not at all 8. Moving or speaking so slowly that other people could have noticed? - Or the opposite - being so fidgety or restless that you have been moving around a lot more than usual: not at all 9. Thoughts that you would be better off or of hurting yourself in some way: Not at all Total score: 0 Source: Developed by Drs. Cecil Cantu, Lisy Duong, David Caldwell and colleagues, with an educational becki from [employer] Depression screen completed yes Social History Living Situation History Lives With: Family Housing: House Tobacco History Smoking Status: Never smoker Second Hand Smoke Exposure: No Alcohol History Alcohol Intake: Never Domestic Abuse History Do You Feel Safe at Home: Yes History of Present Illness HPI Narrative Pelvic pain, painful intercourse since March Lis Sheppard is a 39-year-old female presenting for evaluation of pelvic pain. She has a long-standing history of gynecologic issues dating back to menarche at age 10, including ovarian cysts that required surgical intervention during her teenage years, resulting in removal of one fallopian tube and cyst. She reports having multiple surgeries over the years and has been dealing with chronic pelvic pain, which she had attributed to scar tissue formation from previous procedures. The patient describes a recent worsening of her symptoms. In March, she experienced severe dyspareunia for the first time, describing pain during intercourse that was severe enough to bring her to tears. This represents a new symptom for her, as she had never experienced painful intercourse previously. She continues to have regular menstrual cycles that occur monthly and on time. The patient reports being very physically active, engaging in running, gym workouts, and cage fighting. She notes that as she has become more active and lost weight, she has experienced increased pelvic pain. She has had multiple visits for chronic pelvic pain management. Recent imaging studies have revealed a 4-5 centimeter uterine fundal mass consistent with a fibroid. The patient's last Pap smear was performed in 2018, and she recently had another Pap smear performed by her primary care physician, Nicolasa Goff, with results pending. Medical History: - Chronic pelvic pain with multiple emergency room visits - History of ovarian cysts since age 10, requiring surgical intervention during teenage years - Menstrual irregularities since menarche at age 10 Surgical History: - section - Unilateral salpingectomy with ovarian cystectomy during teenage years for large ovarian cyst - Prior laparoscopic surgery Obstetric History: - History of at least one resulting in section delivery Medications: - control pills Social History: - Very active lifestyle including running, gym workouts, and cage fighting with family - Lives with family Diagnostic Test Results and Labs: - CT scan of abdomen and pelvis (05-08-2025): 4-centimeter uterine fundal mass consistent with leiomyoma. Rest of scan within normal limits. - Pelvic ultrasound (05-08-2025): Uterus 8.8 cm, fundal mass 4.9 x 3.6 x 4.1 cm, endometrial stripe 0.4 cm, right ovary 3.3 cm with arterial flow, left ovary 3.2 cm with arterial flow, 21 mm cyst - Pap smear: Last performed in 2018 Exam General General Appearance: alert, in no apparent distress and healthy appearing Head Head exam: atraumatic Neck Neck exam: Present normal inspection and trachea midline Chest Chest inspection: Present normal inspection and symmetric chest wall rise External exam: Present normal external exam; Absent tenderness Neuro Neurological exam: Present oriented X3 Psych Psychiatric exam: Present normal affect and normal mood Office Procedures [facility] Clinic LOC & Office Proc's Nursing/Assessment Patient Status: Established Patient OB Clinic Nursing Assessment: Medication Reconciliation, Update PMH in EMR and Vital Signs OB Clinic Coordination of Care: Complex Care and Chronic Disease 1-5, Consent,records obtained, informed consent, Education Simp Pt/Fam, 1 Ins Authorization, Lab and Imaging orders, Results/Orders obtained and Staff clarify orders Established Patient Charge Established Patient Point Assignment: 120 Established Patient Point Charge: EP Level 4 (120-155) Assessment & Plan Diagnosis / Problem List (1) Intramural leiomyoma of uterus: Status: Acute (2) Pelvic and perineal pain unspecified side: Status: Acute (3) Deep dyspareunia: Status: Acute (4) Encounter for screening for malignant neoplasm of vagina: Status: Acute Plan Uterine fibroid with pelvic pain Assessment: Patient has a 4.9 x 3.6 x 4.1 cm fundal fibroid identified on pelvic ultrasound from April 2025, which correlates with a 4 cm uterine fundal mass seen on CT scan. This fibroid can explain her chronic pelvic pain and recent onset of severe dyspareunia in March. Patient has longstanding history of pelvic pain since menarche at age 10, with previous ovarian cyst requiring unilateral salpingo-oophorectomy as a teenager. Pain has worsened recently despite increased physical activity and weight loss. The fibroid is likely hormonally driven by estrogen surges during ovulation and premenstrual periods. Plan: - Discussed three treatment options with patient: 1. Lupron injection therapy: GnRH agonist to induce temporary menopause-like state, maximum one year duration due to side effects, with ultrasound monitoring at 6 months and 1 year to assess fibroid shrinkage 2. Open hysterectomy with bilateral salpingo-oophorectomy given history of ovarian cysts requiring surgery 3. Minimally invasive robotic hysterectomy with referral to [place] physician (equipment not available locally) - Informed consent provided: All options will cause menopause symptoms including hot flashes and night sweats. With Lupron, periods will stop after 1-2 months. With surgery, hormone replacement therapy can be initiated post-operatively since target organs will be removed - Patient education materials to be provided comparing all three treatment options - Patient to research options at home and call back with decision - If choosing injection or open surgery, patient can return here; if choosing robotic surgery, referral to Fam will be arranged Cervical cancer screening Assessment: Last Pap smear was in 2017. Primary care physician Nicolasa Goff performed Pap smear yesterday with results pending. Plan: - Pap smear results expected in approximately 7 days from primary care physician
[2025-06-08 09:03] VITALS: BP 127/87; PULSE 67; RESP 14; TEMP 36.6; O2SAT 97; BMI 34.0
== END 2025-06-08 09:38 | disposition home or self-care (01) ==
LOC: HODSOBC 08:48
PROVIDERS: PCP Physician Assistant Medical; Referring Provider Physician Assistant Medical; Supervising Provider Obstetrics & Gynecology; Visit Provider Obstetrics & Gynecology
DX: D25.1 Intramural leiomyoma of uterus (principal); N94.12 Deep dyspareunia; G89.29 Other chronic pain; R10.20 Pelvic and perineal pain unspecified side; Z90.79 Acquired absence of other genital organ(s); Z90.721 Acquired absence of ovaries, unilateral; Z98.891 History of uterine scar from previous surgery; Z88.6 Allergy status to analgesic agent
CPT/HCPCS: 99214; G0463